=== PATIENT | male | born 1950 | race Caucasian/White ===

== ENCOUNTER 2021-09-24 10:27 | Inpatient (IN) ==
[2021-09-24] MEDS ORDERED: Ipratropium/Albuterol Neb 3 ML IH PRN (16:15)
[2021-09-24] MEDS ORDERED: *HR* Dextrose 50 % in Water (Syg) 50 ML SYRINGE IVP PRN (16:17)
[2021-09-24] MEDS ORDERED: D5% in Water 1,000 ML IVC PRN (16:17)
[2021-09-24] MEDS ORDERED: Dextrose 4 GM Chewable Tablets PO PRN ×2 (16:17)
[2021-09-24] MEDS: carvediloL 6.25 MG TABLET PO SCH (21:25)
[2021-09-25] MEDS: *HR* Enoxaparin 40 MG/0.4 ML SYRINGE SQ SCH (05:27)
[2021-09-25 05:54] LABS: Basophils % 0.3 %; Eosinophils # 0.1 K/mcL (0.0-0.6); Eosinophils % 1.8 %; Hematocrit 27.8 % (37.5-50.1); Hemoglobin 9.4 g/dL (12.9-16.9); Immature Granulocytes % 0.8 % (0-4); Lymphocytes # 1.5 K/mcL (0.6-4.6); Lymphocytes % 23.8 %; Mean Corpuscular HGB Conc 33.8 g/dL (31.6-35.5); Mean Corpuscular Hemoglobin 32.8 pg (28.0-33.3); Mean Corpuscular Volume 96.9 fL (83.0-100.0); Mean Platelet Volume 10.6 fL (9.4-12.4); Neutrophils # 3.5 K/mcL (1.6-8.9); Platelet Count 239 K/mcL (140-400); Red Blood Count 2.87 M/mcL (4.19-5.50); Red Cell Distribution Width 12.9 % (11.5-14.5); Segmented Neutrophils % 57.3 %; White Blood Count 6.1 K/mcL (4.3-11.1)
[2021-09-25 06:12] LABS: BUN/Creatinine Ratio 23 (6-26); Blood Urea Nitrogen 7 mg/dL (8-23); Calcium 8.8 mg/dL (8.6-10.3); Carbon Dioxide 26 mEq/L (23-29); Chloride 99 mEq/L (98-107); Glucose 105 mg/dL (70-105); Osmolality,Calculated 272 (280-300); Potassium 3.7 mEq/L (3.5-5.1); Sodium 132 mEq/L (136-145); eGFR For African Americans > 60 (> 60); eGFR For Non-African Americans > 60 (> 60)
[2021-09-25] MEDS: Folic Acid 1 MG TABLET PO SCH (08:44)
[2021-09-25] MEDS: Loratadine 10 MG TABLET PO SCH (08:44)
[2021-09-25] MEDS: carvediloL 6.25 MG TABLET PO SCH ×2 (08:44→19:56)
[2021-09-25] MEDS: Thiamine (B-1) 100 MG TABLET PO SCH (08:44)
[2021-09-25] MEDS: Magnesium Oxide 400 MG TABLET PO SCH (08:44)
[2021-09-25] MEDS: Vitamin B Complex/Vit C/Vit E 1 EACH TABLET PO SCH (08:45)
[2021-09-25] MEDS: Nicotine 21 MG PATCH.TD24 TD SCH (08:45)
[2021-09-25] MEDS: *HR* HYDROcodone/Acet 5/325 mg TABLET PO PRN (11:15)
[2021-09-25] MEDS: Sennosides/Docusate Sodium TABLET PO SCH ×2 (11:15→19:57)
[2021-09-26] MEDS: *HR* HYDROcodone/Acet 5/325 mg TABLET PO PRN ×3 (05:30→20:36)
[2021-09-26] MEDS: *HR* Enoxaparin 40 MG/0.4 ML SYRINGE SQ SCH (05:32)
[2021-09-26] MEDS: Nicotine 21 MG PATCH.TD24 TD SCH (07:51)
[2021-09-26] MEDS: carvediloL 6.25 MG TABLET PO SCH ×2 (07:52→20:37)
[2021-09-26] MEDS: Folic Acid 1 MG TABLET PO SCH (07:52)
[2021-09-26] MEDS: Vitamin B Complex/Vit C/Vit E 1 EACH TABLET PO SCH (07:52)
[2021-09-26] MEDS: Loratadine 10 MG TABLET PO SCH (07:52)
[2021-09-26] MEDS: Thiamine (B-1) 100 MG TABLET PO SCH (07:52)
[2021-09-26] MEDS: Sennosides/Docusate Sodium TABLET PO SCH ×2 (07:52→20:37)
[2021-09-26] MEDS: Magnesium Oxide 400 MG TABLET PO SCH (07:52)
[2021-09-27] MEDS: *HR* Enoxaparin 40 MG/0.4 ML SYRINGE SQ SCH (05:44)
[2021-09-27] MEDS: Nicotine 21 MG PATCH.TD24 TD SCH (08:10)
[2021-09-27] MEDS: carvediloL 6.25 MG TABLET PO SCH ×2 (08:15→21:12)
[2021-09-27] MEDS: Folic Acid 1 MG TABLET PO SCH (08:15)
[2021-09-27] MEDS: Magnesium Oxide 400 MG TABLET PO SCH (08:15)
[2021-09-27] MEDS: Sennosides/Docusate Sodium TABLET PO SCH ×2 (08:15→21:14)
[2021-09-27] MEDS: Vitamin B Complex/Vit C/Vit E 1 EACH TABLET PO SCH (08:15)
[2021-09-27] MEDS: Thiamine (B-1) 100 MG TABLET PO SCH (08:15)
[2021-09-27] MEDS: Loratadine 10 MG TABLET PO SCH (08:15)
[2021-09-27] MEDS ORDERED: 0.9 % Sodium Chloride 1,000 ML ONE (08:57)
[2021-09-27] MEDS ORDERED: *HR* Adenosine 6 MG/2 ML VIAL IVP ONE ×2 (08:59→09:03)
[2021-09-27] MEDS ORDERED: *HR* Adenosine 6 MG/2 ML VIAL IVP STA (09:06)
[2021-09-27] MEDS ORDERED: *HR* FentaNYL (PF) 100 MCG/2 ML VIAL IVP ONE (09:13)
[2021-09-27 10:23] LABS: Basophils % 0.6 %; Eosinophils # 0.1 K/mcL (0.0-0.6); Eosinophils % 1.1 %; Hematocrit 26.6 % (37.5-50.1); Hemoglobin 9.1 g/dL (12.9-16.9); Immature Granulocytes % 0.6 % (0-4); Lymphocytes # 0.8 K/mcL (0.6-4.6); Lymphocytes % 13.1 %; Mean Corpuscular HGB Conc 34.2 g/dL (31.6-35.5); Mean Corpuscular Hemoglobin 32.9 pg (28.0-33.3); Mean Platelet Volume 9.8 fL (9.4-12.4); Monocytes # 0.8 K/mcL (0.0-1.3); Monocytes % 12.3 %; Neutrophils # 4.5 K/mcL (1.6-8.9); Platelet Count 238 K/mcL (140-400); Red Blood Count 2.77 M/mcL (4.19-5.50); Red Cell Distribution Width 12.8 % (11.5-14.5); Segmented Neutrophils % 72.3 %; White Blood Count 6.2 K/mcL (4.3-11.1)
[2021-09-27 10:37] LABS: Alanine Aminotransferase 44 Units/L (7-52); Albumin 3.1 g/dL (3.5-5.7); Albumin/Globulin Ratio 1.2 (1.1-2.2); Alkaline Phosphatase 72 Units/L (34-104); Aspartate Amino Transferase 50 Units/L (13-39); BUN/Creatinine Ratio 20 (6-26); Bilirubin,Total 1.5 mg/dL (0.3-1.0); Blood Urea Nitrogen 7 mg/dL (8-23); Calcium 8.4 mg/dL (8.6-10.3); Carbon Dioxide 22 mEq/L (23-29); Chloride 101 mEq/L (98-107); Globulin 2.5 g/dL (2.4-3.5); Glucose 126 mg/dL (70-105); Magnesium 1.6 mg/dL (1.6-2.6); Osmolality,Calculated 274 (280-300); Potassium 3.5 mEq/L (3.5-5.1); Sodium 132 mEq/L (136-145); Total Protein 5.6 g/dL (6.4-8.9); eGFR For African Americans > 60 (> 60); eGFR For Non-African Americans > 60 (> 60)
[2021-09-27] MEDS: *HR* HYDROcodone/Acet 5/325 mg TABLET PO PRN (16:31)
[2021-09-28] MEDS: *HR* Enoxaparin 40 MG/0.4 ML SYRINGE SQ SCH (05:14)
[2021-09-28] MEDS: Loratadine 10 MG TABLET PO SCH (08:01)
[2021-09-28] MEDS: Nicotine 21 MG PATCH.TD24 TD SCH (08:01)
[2021-09-28] MEDS: Vitamin B Complex/Vit C/Vit E 1 EACH TABLET PO SCH (08:01)
[2021-09-28] MEDS: Folic Acid 1 MG TABLET PO SCH (08:01)
[2021-09-28] MEDS: Thiamine (B-1) 100 MG TABLET PO SCH (08:01)
[2021-09-28] MEDS: Magnesium Oxide 400 MG TABLET PO SCH (08:02)
[2021-09-28] MEDS: carvediloL 6.25 MG TABLET PO SCH ×2 (08:02→19:34)
[2021-09-28] MEDS: Sennosides/Docusate Sodium TABLET PO SCH ×2 (08:03→19:34)
[2021-09-28] MEDS: *HR* HYDROcodone/Acet 5/325 mg TABLET PO PRN (19:34)
[2021-09-29] MEDS: *HR* Enoxaparin 40 MG/0.4 ML SYRINGE SQ SCH (05:20)
[2021-09-29] MEDS: Sennosides/Docusate Sodium TABLET PO SCH ×2 (09:01→20:50)
[2021-09-29] MEDS: Thiamine (B-1) 100 MG TABLET PO SCH (09:01)
[2021-09-29] MEDS: Vitamin B Complex/Vit C/Vit E 1 EACH TABLET PO SCH (09:01)
[2021-09-29] MEDS: Magnesium Oxide 400 MG TABLET PO SCH (09:02)
[2021-09-29] MEDS: Folic Acid 1 MG TABLET PO SCH (09:02)
[2021-09-29] MEDS: carvediloL 6.25 MG TABLET PO SCH ×2 (09:02→16:10)
[2021-09-29] MEDS: Loratadine 10 MG TABLET PO SCH (09:03)
[2021-09-29] MEDS: *HR* HYDROcodone/Acet 5/325 mg TABLET PO PRN ×2 (09:03→16:10)
[2021-09-29] MEDS: Nicotine 21 MG PATCH.TD24 TD SCH (09:04)
[2021-09-29 16:21] LABS: Hematocrit 29.6 % (37.5-50.1); Hemoglobin 9.8 g/dL (12.9-16.9); Mean Corpuscular HGB Conc 33.1 g/dL (31.6-35.5); Mean Corpuscular Hemoglobin 32.6 pg (28.0-33.3); Mean Corpuscular Volume 98.3 fL (83.0-100.0); Platelet Count 316 K/mcL (140-400); Red Blood Count 3.01 M/mcL (4.19-5.50); Red Cell Distribution Width 13.4 % (11.5-14.5); White Blood Count 7.4 K/mcL (4.3-11.1)
[2021-09-29 16:38] LABS: Alanine Aminotransferase 53 Units/L (7-52); Albumin 3.4 g/dL (3.5-5.7); Albumin/Globulin Ratio 1.4 (1.1-2.2); Alkaline Phosphatase 111 Units/L (34-104); Aspartate Amino Transferase 64 Units/L (13-39); BUN/Creatinine Ratio 27 (6-26); Bilirubin,Total 1.2 mg/dL (0.3-1.0); Blood Urea Nitrogen 10 mg/dL (8-23); Calcium 8.9 mg/dL (8.6-10.3); Carbon Dioxide 27 mEq/L (23-29); Chloride 99 mEq/L (98-107); Globulin 2.5 g/dL (2.4-3.5); Glucose 99 mg/dL (70-105); Osmolality,Calculated 273 (280-300); Potassium 4.2 mEq/L (3.5-5.1); Sodium 132 mEq/L (136-145); Total Protein 5.9 g/dL (6.4-8.9); eGFR For African Americans > 60 (> 60); eGFR For Non-African Americans > 60 (> 60)
[2021-09-29 19:56] LABS: Folate > 22.3 ng/mL (3.0-16.0); Vitamin B12 731 pg/mL (250-1100)
[2021-09-29] MEDS: Lactulose Oral Soln 20 GM/30 ML UDC PO SCH (20:50)
[2021-09-30] MEDS: *HR* Enoxaparin 40 MG/0.4 ML SYRINGE SQ SCH (04:35)
[2021-09-30] MEDS: Magnesium Oxide 400 MG TABLET PO SCH (07:48)
[2021-09-30] MEDS: Nicotine 21 MG PATCH.TD24 TD SCH (07:48)
[2021-09-30] MEDS: Vitamin B Complex/Vit C/Vit E 1 EACH TABLET PO SCH (07:49)
[2021-09-30] MEDS: Folic Acid 1 MG TABLET PO SCH (07:49)
[2021-09-30] MEDS: Loratadine 10 MG TABLET PO SCH (07:49)
[2021-09-30] MEDS: Sennosides/Docusate Sodium TABLET PO SCH ×2 (07:49→17:16)
[2021-09-30] MEDS: Thiamine (B-1) 100 MG TABLET PO SCH (07:50)
[2021-09-30] MEDS: Lactulose Oral Soln 20 GM/30 ML UDC PO SCH ×2 (07:50→19:44)
[2021-09-30] MEDS: carvediloL 6.25 MG TABLET PO SCH ×2 (07:50→17:16)
[2021-09-30] MEDS: *HR* HYDROcodone/Acet 5/325 mg TABLET PO PRN ×2 (08:01→22:43)
[2021-10-01 04:38] LABS: Hematocrit 28.8 % (37.5-50.1); Hemoglobin 9.8 g/dL (12.9-16.9); Mean Corpuscular Hemoglobin 32.6 pg (28.0-33.3); Mean Corpuscular Volume 95.7 fL (83.0-100.0); Mean Platelet Volume 9.7 fL (9.4-12.4); Platelet Count 291 K/mcL (140-400); Red Blood Count 3.01 M/mcL (4.19-5.50); Red Cell Distribution Width 13.4 % (11.5-14.5); White Blood Count 6.5 K/mcL (4.3-11.1)
[2021-10-01] MEDS: *HR* Enoxaparin 40 MG/0.4 ML SYRINGE SQ SCH (04:45)
[2021-10-01 04:58] LABS: Alanine Aminotransferase 52 Units/L (7-52); Albumin 3.2 g/dL (3.5-5.7); Albumin/Globulin Ratio 1.1 (1.1-2.2); Alkaline Phosphatase 109 Units/L (34-104); Aspartate Amino Transferase 61 Units/L (13-39); BUN/Creatinine Ratio 19 (6-26); Bilirubin,Total 1.1 mg/dL (0.3-1.0); Blood Urea Nitrogen 8 mg/dL (8-23); Calcium 8.8 mg/dL (8.6-10.3); Carbon Dioxide 25 mEq/L (23-29); Chloride 102 mEq/L (98-107); Glucose 99 mg/dL (70-105); Magnesium 1.6 mg/dL (1.6-2.6); Osmolality,Calculated 274 (280-300); Sodium 133 mEq/L (136-145); Total Protein 6.2 g/dL (6.4-8.9); eGFR For African Americans > 60 (> 60); eGFR For Non-African Americans > 60 (> 60)
[2021-10-01] MEDS: Lactulose Oral Soln 20 GM/30 ML UDC PO SCH ×2 (08:21→20:22)
[2021-10-01] MEDS: Thiamine (B-1) 100 MG TABLET PO SCH (08:21)
[2021-10-01] MEDS: Folic Acid 1 MG TABLET PO SCH (08:22)
[2021-10-01] MEDS: Sennosides/Docusate Sodium TABLET PO SCH ×2 (08:22→20:23)
[2021-10-01] MEDS: Loratadine 10 MG TABLET PO SCH (08:22)
[2021-10-01] MEDS: carvediloL 6.25 MG TABLET PO SCH ×2 (08:22→16:08)
[2021-10-01] MEDS: Magnesium Oxide 400 MG TABLET PO SCH (08:23)
[2021-10-01] MEDS: Nicotine 21 MG PATCH.TD24 TD SCH (08:23)
[2021-10-01] MEDS: Vitamin B Complex/Vit C/Vit E 1 EACH TABLET PO SCH (08:23)
[2021-10-01] MEDS: *HR* HYDROcodone/Acet 5/325 mg TABLET PO PRN ×2 (16:08→22:12)
[2021-10-02] MEDS: *HR* Enoxaparin 40 MG/0.4 ML SYRINGE SQ SCH (05:31)
[2021-10-02] MEDS: *HR* HYDROcodone/Acet 5/325 mg TABLET PO PRN ×3 (05:36→21:10)
[2021-10-02] MEDS: carvediloL 6.25 MG TABLET PO SCH ×2 (08:41→15:51)
[2021-10-02] MEDS: Folic Acid 1 MG TABLET PO SCH (08:41)
[2021-10-02] MEDS: Vitamin B Complex/Vit C/Vit E 1 EACH TABLET PO SCH (08:41)
[2021-10-02] MEDS: Lactulose Oral Soln 20 GM/30 ML UDC PO SCH ×2 (08:41→21:06)
[2021-10-02] MEDS: Thiamine (B-1) 100 MG TABLET PO SCH (08:42)
[2021-10-02] MEDS: Nicotine 21 MG PATCH.TD24 TD SCH (08:42)
[2021-10-02] MEDS: Magnesium Oxide 400 MG TABLET PO SCH (08:42)
[2021-10-02] MEDS: Loratadine 10 MG TABLET PO SCH (08:42)
[2021-10-02] MEDS: Sennosides/Docusate Sodium TABLET PO SCH ×2 (13:31→21:09)
[2021-10-03] MEDS: *HR* Enoxaparin 40 MG/0.4 ML SYRINGE SQ SCH (03:55)
[2021-10-03] MEDS: *HR* HYDROcodone/Acet 5/325 mg TABLET PO PRN ×2 (03:55→17:25)
[2021-10-03] MEDS: Vitamin B Complex/Vit C/Vit E 1 EACH TABLET PO SCH (08:17)
[2021-10-03] MEDS: Lactulose Oral Soln 20 GM/30 ML UDC PO SCH ×2 (08:17→21:02)
[2021-10-03] MEDS: Thiamine (B-1) 100 MG TABLET PO SCH (08:17)
[2021-10-03] MEDS: carvediloL 6.25 MG TABLET PO SCH ×2 (08:18→17:21)
[2021-10-03] MEDS: Loratadine 10 MG TABLET PO SCH (08:18)
[2021-10-03] MEDS: Folic Acid 1 MG TABLET PO SCH (08:18)
[2021-10-03] MEDS: Magnesium Oxide 400 MG TABLET PO SCH (08:18)
[2021-10-03] MEDS: Nicotine 21 MG PATCH.TD24 TD SCH (08:20)
[2021-10-03] MEDS: Sennosides/Docusate Sodium TABLET PO SCH ×2 (14:41→21:04)
[2021-10-04] MEDS: *HR* Enoxaparin 40 MG/0.4 ML SYRINGE SQ SCH (05:44)
[2021-10-04] MEDS: *HR* HYDROcodone/Acet 5/325 mg TABLET PO PRN (05:44)
[2021-10-04 06:01] LABS: Hemoglobin 10.3 g/dL (12.9-16.9); Mean Corpuscular HGB Conc 33.2 g/dL (31.6-35.5); Mean Corpuscular Hemoglobin 32.4 pg (28.0-33.3); Mean Corpuscular Volume 97.5 fL (83.0-100.0); Mean Platelet Volume 9.3 fL (9.4-12.4); Platelet Count 263 K/mcL (140-400); Red Blood Count 3.18 M/mcL (4.19-5.50); Red Cell Distribution Width 13.6 % (11.5-14.5)
[2021-10-04 06:19] LABS: Alanine Aminotransferase 60 Units/L (7-52); Albumin 3.6 g/dL (3.5-5.7); Albumin/Globulin Ratio 1.2 (1.1-2.2); Alkaline Phosphatase 121 Units/L (34-104); Aspartate Amino Transferase 67 Units/L (13-39); BUN/Creatinine Ratio 23 (6-26); Bilirubin,Total 0.9 mg/dL (0.3-1.0); Blood Urea Nitrogen 9 mg/dL (8-23); Calcium 8.7 mg/dL (8.6-10.3); Carbon Dioxide 23 mEq/L (23-29); Chloride 103 mEq/L (98-107); Glucose 97 mg/dL (70-105); Magnesium 1.7 mg/dL (1.6-2.6); Osmolality,Calculated 277 (280-300); Potassium 4.2 mEq/L (3.5-5.1); Sodium 134 mEq/L (136-145); Total Protein 6.6 g/dL (6.4-8.9); eGFR For African Americans > 60 (> 60); eGFR For Non-African Americans > 60 (> 60)
[2021-10-04] MEDS: Nicotine 21 MG PATCH.TD24 TD SCH (08:35)
[2021-10-04] MEDS: Magnesium Oxide 400 MG TABLET PO SCH (08:36)
[2021-10-04] MEDS: carvediloL 6.25 MG TABLET PO SCH ×2 (08:36→16:21)
[2021-10-04] MEDS: Vitamin B Complex/Vit C/Vit E 1 EACH TABLET PO SCH (08:36)
[2021-10-04] MEDS: Sennosides/Docusate Sodium TABLET PO SCH ×2 (08:36→19:44)
[2021-10-04] MEDS: Lactulose Oral Soln 20 GM/30 ML UDC PO SCH ×2 (08:36→19:45)
[2021-10-04] MEDS: Folic Acid 1 MG TABLET PO SCH (08:36)
[2021-10-04] MEDS: Thiamine (B-1) 100 MG TABLET PO SCH (08:37)
[2021-10-04] MEDS: Loratadine 10 MG TABLET PO SCH (08:37)
[2021-10-05] MEDS: *HR* Enoxaparin 40 MG/0.4 ML SYRINGE SQ SCH (04:47)
[2021-10-05] MEDS: Nicotine 21 MG PATCH.TD24 TD SCH (07:40)
[2021-10-05] MEDS: Lactulose Oral Soln 20 GM/30 ML UDC PO SCH ×2 (07:40→20:07)
[2021-10-05] MEDS: Thiamine (B-1) 100 MG TABLET PO SCH (07:40)
[2021-10-05] MEDS: Loratadine 10 MG TABLET PO SCH (07:41)
[2021-10-05] MEDS: Folic Acid 1 MG TABLET PO SCH (07:41)
[2021-10-05] MEDS: Magnesium Oxide 400 MG TABLET PO SCH (07:41)
[2021-10-05] MEDS: carvediloL 6.25 MG TABLET PO SCH ×2 (07:42→16:57)
[2021-10-05] MEDS: Vitamin B Complex/Vit C/Vit E 1 EACH TABLET PO SCH (07:42)
[2021-10-05] MEDS: Sennosides/Docusate Sodium TABLET PO SCH ×2 (07:42→20:07)
[2021-10-05] MEDS: *HR* HYDROcodone/Acet 5/325 mg TABLET PO PRN (22:12)
[2021-10-06] MEDS: *HR* Enoxaparin 40 MG/0.4 ML SYRINGE SQ SCH (06:10)
[2021-10-06 07:09] VITALS: RESP 16
[2021-10-06] MEDS: Folic Acid 1 MG TABLET PO SCH (08:22)
[2021-10-06] MEDS: *HR* HYDROcodone/Acet 5/325 mg TABLET PO PRN ×2 (08:22→19:13)
[2021-10-06] MEDS: carvediloL 6.25 MG TABLET PO SCH ×2 (08:22→15:57)
[2021-10-06] MEDS: Loratadine 10 MG TABLET PO SCH (08:22)
[2021-10-06] MEDS: Thiamine (B-1) 100 MG TABLET PO SCH (08:23)
[2021-10-06] MEDS: Sennosides/Docusate Sodium TABLET PO SCH ×2 (08:23→19:14)
[2021-10-06] MEDS: Vitamin B Complex/Vit C/Vit E 1 EACH TABLET PO SCH (08:23)
[2021-10-06] MEDS: Magnesium Oxide 400 MG TABLET PO SCH (08:23)
[2021-10-06] MEDS: Nicotine 21 MG PATCH.TD24 TD SCH (08:23)
[2021-10-06] MEDS: Lactulose Oral Soln 20 GM/30 ML UDC PO SCH ×2 (08:26→19:14)
[2021-10-07] MEDS: *HR* Enoxaparin 40 MG/0.4 ML SYRINGE SQ SCH (05:20)
[2021-10-07] MEDS: Lactulose Oral Soln 20 GM/30 ML UDC PO SCH (06:33)
[2021-10-07] MEDS: Magnesium Oxide 400 MG TABLET PO SCH (06:33)
[2021-10-07] MEDS: Vitamin B Complex/Vit C/Vit E 1 EACH TABLET PO SCH (06:33)
[2021-10-07] MEDS: Thiamine (B-1) 100 MG TABLET PO SCH (06:34)
[2021-10-07] MEDS: Sennosides/Docusate Sodium TABLET PO SCH (06:35)
[2021-10-07] MEDS: Folic Acid 1 MG TABLET PO SCH (06:35)
[2021-10-07] MEDS: Loratadine 10 MG TABLET PO SCH (06:35)
[2021-10-07] MEDS: carvediloL 6.25 MG TABLET PO SCH (06:35)
[2021-10-07] MEDS: *HR* HYDROcodone/Acet 5/325 mg TABLET PO PRN (06:35)
[2021-10-07] MEDS: Nicotine 21 MG PATCH.TD24 TD SCH (06:35)
[2021-10-07 08:39] VITALS: BP 129/73; PULSE 89; TEMP 98.2; O2SAT 98
== END 2021-10-07 15:00 | disposition home health service (06) | DRG 562 ==
LOC: INPGRE 16:16
PROVIDERS: ADMIT Internal Medicine; ATTEND Internal Medicine